=== PATIENT | female | born 1990 | race Caucasian/White ===

== ENCOUNTER 2018-04-05 02:47 | Observation (INO) ==
[2018-04-05] MEDS ORDERED: Sod Chloride 0.9% Inj 1,000 ML IV.SIG ONE ×3 (02:54→05:02)
[2018-04-05 03:30] LABS: Baso # (Auto) 0.1 th/mm3 (0.0-0.2); Baso % (Auto) 0.6 % (0.0-2.0); Eos % (Auto) 0.4 % (0.0-4.0); Hemoglobin 14.1 gm/dL (11.6-15.3); Lymph # (Auto) 3.6 th/mm3 (1.0-4.8); Lymph % (Auto) 38.4 % (9.0-44.0); Mean Corpuscular HGB Conc 33.5 % (32.0-36.0); Mean Corpuscular Hemoglobin 30.3 pg (27.0-34.0); Mean Corpuscular Volume 90.5 fL (80.0-100.0); Mean Platelet Volume 8.4 fL (7.0-11.0); Mono # (Auto) 0.9 th/mm3 (0.0-0.9); Mono % (Auto) 9.9 % (0.0-8.0); Neut # (Auto) 4.7 th/mm3 (1.8-7.7); Neut % (Auto) 50.7 % (16.0-70.0); Platelet Count 337 th/mm3 (150-450); Red Blood Count 4.64 mil/mm3 (4.00-5.30); Red Cell Distribution Width 14.5 % (11.6-17.2); White Blood Count 9.3 th/mm3 (4.0-11.0)
[2018-04-05] MEDS ORDERED: Adenosine Inj 6 MG/2 ML Syringe IV.PUSH ONE ×3 (03:33→03:40)
[2018-04-05 03:38] LABS: Bacteria,Urine Rare /hpf; Bilirubin,Urine Negative (Negative); Clarity,Urine Clear (Clear); Color,Urine Yellow (Yellw/Straw); Glucose,Urine (UA) Negative (Negative); Hyaline Casts,Urine 1 /lpf (0-3); Leukocyte Esterase,Urine Negative (Negative); Mucus,Urine Few /lpf (Occasional); Nitrite,Urine Negative (Negative); Specific Gravity,Urine 1.009 (1.002-1.035); Squamous Epithelial Cell,Urine 1 /hpf (0-5)
[2018-04-05 03:42] LABS: Amphetamine Screen,Urine Pos (Neg); Barbiturate Screen,Urine Neg (Neg); Cannabinoid Screen,Urine Neg (Neg); Cocaine Screen,Urine Neg (Neg); Opiate Screen,Urine Neg (Neg)
[2018-04-05 03:49] LABS: Alanine Aminotransferase 76 U/L (10-53); Albumin 4.3 g/dL (3.4-5.0); Anion Gap 15 meq/L (5-15); Aspartate Aminotransferase 39 U/L (15-37); Blood Urea Nitrogen 5 mg/dL (7-18); Calcium 8.1 mg/dL (8.5-10.1); Carbon Dioxide 17.6 meq/L (21.0-32.0); Chloride 111 meq/L (98-107); Glomerular Filtration Rate 75 mL/min (>89); Glucose,Random 122 mg/dL (74-106); Potassium 3.5 meq/L (3.5-5.1); Sodium 144 meq/L (136-145)
[2018-04-05 03:51] LABS: Alkaline Phosphatase 85 U/L (45-117); Total Protein 8.4 g/dL (6.4-8.2)
[2018-04-05 04:05] LABS: Alcohol 290 mg/dL (0-5)
--- NOTE | 2018-04-05 04:26 | ED ---
HPI General Chief Complaint: Altered Mental Status Stated Complaint: Unresponsive Time Seen by Provider: 04/05/18 02:52 Source: patient Mode of arrival: ambulatory Limitations: altered mental status History of Present Illness HPI narrative: Patient took an unknown pill. Altered mental status fall and she was brought to the ED. upon arrival history is limited due to altered mental status. MD complaint: altered mental status, decreased responsiveness and intoxication Onset (ago): hour(s) (1) Timing confirmed by: other (friend) Severity: moderate Consistency of symptoms: constant Context: alcohol abuse and drug abuse Associated symptoms: denies other symptoms Related Data Home Medications Medication Instructions Recorded Confirmed Unable to Obtain Home Meds 04/05/18 04/05/18 Allergies Allergy/AdvReac Type Severity Reaction Status Date / Time No Allergy Information Allergy Verified 04/05/18 02:59 Available Review of Systems ROS Unobtainable unobtainable due to mental status [facility] Medical History Medical History Medical history unknown (Acute) Surgical history unknown (Acute) Social History Social History Substance History: Unable to Obtain Smoking Status: Unknown if ever smoked How Often Do You Have a Drink Containing Alcohol: Unable to Obtain Recent Travel in [facility] within the Last 8 Weeks: No Recent Out of Country Travel within the Last 8 Weeks: No Immunization History Tetanus Immunization: Unable to Assess Exam Narrative Exam Narrative: GENERAL: Approximate 27-year-old female, GCS 9 SKIN: Focused skin assessment warm/dry. HEAD: Atraumatic. Normocephalic. EYES: Pupils equal and round. No scleral icterus. No injection or drainage. ENT: No nasal bleeding or discharge. Mucous membranes pink and moist. NECK: Trachea midline. No JVD. CARDIOVASCULAR: Tachycardia. Regular rhythm. RESPIRATORY: No accessory muscle use. Clear to auscultation. Breath sounds equal bilaterally. GASTROINTESTINAL: Abdomen soft, non-tender, nondistended. Hepatic and splenic margins not palpable. MUSCULOSKELETAL: No obvious deformities. No clubbing. No cyanosis. No edema. NEUROLOGICAL: Pupils are somewhat dilated. GCS is 9. There is an intact gag reflex. Alcohols on the breath. PSYCHIATRIC: Unable to assess Course Reevaluation(s) Reevaluation #1: Patient's heart rate increased to about 170. She received adenosine which was provided by the other physician in the emergency department. The heart rate decreased to about 150s. I examined the patient following return from a trauma alert and the heart rate was about 140. She had no chest pain or shortness of breath. The O2 sat is 100%. 3 L saline was added on. Ativan was added on. The patient was reassessed a few times over the next 2 hours or so. Heart rate remained at about 140. Another liter of saline was added on the another milligram of IV Ativan was added on. About 30 minutes 40 minutes after the Ativan was given a heart rate decreased to 130. Labetalol was also ordered in the meanwhile and rate decreased to 110s after. Case d/w Dr Richards at 0600. Initial Documented Vital Signs Temperature 97.7 F 04/05/18 02:53 Pulse Rate 122 H 04/05/18 02:53 Respiratory Rate 16 04/05/18 02:53 Blood Pressure 116/56 L 04/05/18 02:53 Pulse Oximetry 99 04/05/18 02:53 Last Documented Vital Signs Temperature 97.7 F 04/05/18 02:53 Pulse Rate 150 H 04/05/18 05:31 Respiratory Rate 16 04/05/18 05:31 Blood Pressure 151/82 H 04/05/18 05:31 Pulse Oximetry 99 04/05/18 05:55 Medical Decision Making POC Test Results POC Urine Results: Negative Lab Data Lab results reviewed: Yes I reviewed the patient's lab results. Result diagrams: 04/05/18 03:10 04/05/18 03:10 Lab Results 04/05/18 04/05/18 04/05/18 Range/Units 03:10 03:10 03:20 WBC 9.3 (4.0-11.0) th/mm3 RBC 4.64 (4.00-5.30) mil/mm3 Hgb 14.1 (11.6-15.3) gm/dL Hct 42.0 (35.0-46.0) % MCV 90.5 (80.0-100.0) fL MCH 30.3 (27.0-34.0) pg MCHC 33.5 (32.0-36.0) % RDW 14.5 (11.6-17.2) % Plt Count 337 (150-450) th/mm3 MPV 8.4 (7.0-11.0) fL Neut % (Auto) 50.7 (16.0-70.0) % Lymph % (Auto) 38.4 (9.0-44.0) % [place] % (Auto) 9.9 H (0.0-8.0) % Eos % (Auto) 0.4 (0.0-4.0) % Baso % (Auto) 0.6 (0.0-2.0) % Neut # (Auto) 4.7 (1.8-7.7) th/mm3 Lymph # (Auto) 3.6 (1.0-4.8) th/mm3 [place] # (Auto) 0.9 (0.0-0.9) th/mm3 Eos # (Auto) 0.0 (0.0-0.4) th/mm3 Baso # (Auto) 0.1 (0.0-0.2) th/mm3 WBC Differential . Differential Comment Auto diff final Sodium 144 (136-145) meq/L Potassium 3.5 (3.5-5.1) meq/L Chloride 111 H (98-107) meq/L Carbon Dioxide 17.6 L (21.0-32.0) meq/L Anion Gap 15 (5-15) meq/L BUN 5 L (7-18) mg/dL Creatinine 0.68 (0.50-1.00) mg/dL Estimated GFR 75 L (>89) mL/min Random Glucose 122 H (74-106) mg/dL Calcium 8.1 L (8.5-10.1) mg/dL Total Bilirubin 0.2 (0.2-1.0) mg/dL AST 39 H (15-37) U/L ALT 76 H (10-53) U/L Alkaline Phosphatase 85 (45-117) U/L Total Protein 8.4 H (6.4-8.2) g/dL Albumin 4.3 (3.4-5.0) g/dL Urine Color (Yellw/Straw) Urine Clarity (Clear) Urine pH (5.0-8.5) Ur Specific [place] (1.002-1.035) Urine Protein (Neg-Trace) mg/dL Urine Glucose (UA) (Negative) mg/dL Urine Ketones (Negative) mg/dL Urine Occult Blood (Negative) Urine Nitrate (Negative) Urine Bilirubin (Negative) Urine Urobilinogen (Less than 2) mg/dL Ur Leukocyte Esterase (Negative) Urine RBC (0-3) /hpf Urine WBC (0-5) /hpf Ur Squamous Epith Cells (0-5) /hpf Urine Bacteria (None) /hpf Hyaline Casts (0-3) /lpf Urine Mucus (Occasional) /lpf Urine Opiates Screen Neg (Neg) Acetaminophen Less than 2.0 L (10.0-30.0) mcg/mL Ur Barbiturates Screen Neg (Neg) Ur Amphetamines Screen Pos H (Neg) U Benzodiazepines Scrn Neg (Neg) Urine Cocaine Screen Neg (Neg) U Cannabinoids Screen Neg (Neg) Serum Alcohol 290 H (0-5) mg/dL 04/05/18 Range/Units 03:20 WBC (4.0-11.0) th/mm3 RBC (4.00-5.30) mil/mm3 Hgb (11.6-15.3) gm/dL Hct (35.0-46.0) % MCV (80.0-100.0) fL MCH (27.0-34.0) pg MCHC (32.0-36.0) % RDW (11.6-17.2) % Plt Count (150-450) th/mm3 MPV (7.0-11.0) fL Neut % (Auto) (16.0-70.0) % Lymph % (Auto) (9.0-44.0) % [place] % (Auto) (0.0-8.0) % Eos % (Auto) (0.0-4.0) % Baso % (Auto) (0.0-2.0) % Neut # (Auto) (1.8-7.7) th/mm3 Lymph # (Auto) (1.0-4.8) th/mm3 [place] # (Auto) (0.0-0.9) th/mm3 Eos # (Auto) (0.0-0.4) th/mm3 Baso # (Auto) (0.0-0.2) th/mm3 WBC Differential Differential Comment Sodium (136-145) meq/L Potassium (3.5-5.1) meq/L Chloride (98-107) meq/L Carbon Dioxide (21.0-32.0) meq/L Anion Gap (5-15) meq/L BUN (7-18) mg/dL Creatinine (0.50-1.00) mg/dL Estimated GFR (>89) mL/min Random Glucose (74-106) mg/dL Calcium (8.5-10.1) mg/dL Total Bilirubin (0.2-1.0) mg/dL AST (15-37) U/L ALT (10-53) U/L Alkaline Phosphatase (45-117) U/L Total Protein (6.4-8.2) g/dL Albumin (3.4-5.0) g/dL Urine Color Yellow (Yellw/Straw) Urine Clarity Clear (Clear) Urine pH 5.0 (5.0-8.5) Ur Specific [place] 1.009 (1.002-1.035) Urine Protein Negative (Neg-Trace) mg/dL Urine Glucose (UA) Negative (Negative) mg/dL Urine Ketones Negative (Negative) mg/dL Urine Occult Blood Small H (Negative) Urine Nitrate Negative (Negative) Urine Bilirubin Negative (Negative) Urine Urobilinogen Less than 2 (Less than 2) mg/dL Ur Leukocyte Esterase Negative (Negative) Urine RBC 1 (0-3) /hpf Urine WBC 1 (0-5) /hpf Ur Squamous Epith Cells 1 (0-5) /hpf Urine Bacteria Rare H (None) /hpf Hyaline Casts 1 (0-3) /lpf Urine Mucus Few H (Occasional) /lpf Urine Opiates Screen (Neg) Acetaminophen (10.0-30.0) mcg/mL Ur Barbiturates Screen (Neg) Ur Amphetamines Screen (Neg) U Benzodiazepines Scrn (Neg) Urine Cocaine Screen (Neg) U Cannabinoids Screen (Neg) Serum Alcohol (0-5) mg/dL Alcohol is 290 Tox positive for amphetamine Imaging Data Radiologist's impression: ITS Impressions Chest X-Ray 04/05/18 02:52 CONCLUSION: The lungs are clear. Head CT 04/05/18 02:52 CONCLUSION: 1. Negative noncontrast CT brain. ECG Data EKG Prior to Arrival: No Attestation: I personally reviewed and interpreted this ECG as follows: Prior ECG tracings: not available for review Interpretation: EKG: SVT, rate 170s, normal axis Discharge Plan Discharge Disposition Patient Disposition: 30 Still Patient Physicians Team ED Provider: Michael Hurley Rxs /Orders / Referrals /Forms Prescriptions: No Action Unable to Obtain Home Meds RF: 0 Discharge Interventions Interventions: Vital Signs Last Done: 04/05/18 05:31 Status ED Status: With Doctor
[2018-04-05] MEDS ORDERED: Labetalol HCl Inj 100 MG/20 ML Vial IV.PUSH ONE (05:23)
--- NOTE | 2018-04-05 05:57 | XR ---
EXAM DATE: 04/05/2018 3:57 AM EDT AGE/SEX: 89 years / Female INDICATIONS: Chest discomfort, altered mental status, possible overdose CLINICAL DATA: This is the patient's initial encounter. Patient reports that signs and symptoms have been present for 1 day and indicates a pain score of Nonresponsive. MEDICAL/SURGICAL HISTORY: None. None. COMPARISON: No prior exams available for comparison. FINDINGS: Mild patient rotation towards the left. A single AP view of the chest demonstrates the lungs to be sy mmetrically aerated without evidence of mass, infiltrate or effusion. The cardiomediastinal contours are unremarkable. Osseous structures are intact. CONCLUSION: The lungs are clear. Electronically signed by: Ramirez Greenberg MD 04/05/2018 5:56 AM EDT
[2018-04-05] MEDS ORDERED: Bisacodyl 10 MG Supp RECTAL PRN (05:58)
--- NOTE | 2018-04-05 06:09 | ED ---
HPI General Chief Complaint: Altered Mental Status Stated Complaint: Unresponsive Time Seen by Provider: 04/05/18 02:52 Source: patient Mode of arrival: ambulatory Limitations: altered mental status Related Data Home Medications Medication Instructions Recorded Confirmed Unable to Obtain Home Meds 04/05/18 04/05/18 Allergies Allergy/AdvReac Type Severity Reaction Status Date / Time No Allergy Information Allergy Verified 04/05/18 02:59 Available [facility] Medical History Medical History Medical history unknown (Acute) Surgical history unknown (Acute) Social History Social History Substance History: Unable to Obtain Smoking Status: Unknown if ever smoked How Often Do You Have a Drink Containing Alcohol: Unable to Obtain Recent Travel in [facility] within the Last 8 Weeks: No Recent Out of Country Travel within the Last 8 Weeks: No Immunization History Tetanus Immunization: Unable to Assess Course Initial Documented Vital Signs Temperature 97.7 F 04/05/18 02:53 Pulse Rate 122 H 04/05/18 02:53 Respiratory Rate 16 04/05/18 02:53 Blood Pressure 116/56 L 04/05/18 02:53 Pulse Oximetry 99 04/05/18 02:53 Last Documented Vital Signs Temperature 97.7 F 04/05/18 02:53 Pulse Rate 150 H 04/05/18 05:31 Respiratory Rate 16 04/05/18 05:31 Blood Pressure 151/82 H 04/05/18 05:31 Pulse Oximetry 99 04/05/18 05:55 Medical Decision Making POC Test Results POC Urine Results: Negative Lab Data Result diagrams: 04/05/18 03:10 04/05/18 03:10 Lab Results 04/05/18 04/05/18 04/05/18 Range/Units 03:10 03:10 03:20 WBC 9.3 (4.0-11.0) th/mm3 RBC 4.64 (4.00-5.30) mil/mm3 Hgb 14.1 (11.6-15.3) gm/dL Hct 42.0 (35.0-46.0) % MCV 90.5 (80.0-100.0) fL MCH 30.3 (27.0-34.0) pg MCHC 33.5 (32.0-36.0) % RDW 14.5 (11.6-17.2) % Plt Count 337 (150-450) th/mm3 MPV 8.4 (7.0-11.0) fL Neut % (Auto) 50.7 (16.0-70.0) % Lymph % (Auto) 38.4 (9.0-44.0) % [place] % (Auto) 9.9 H (0.0-8.0) % Eos % (Auto) 0.4 (0.0-4.0) % Baso % (Auto) 0.6 (0.0-2.0) % Neut # (Auto) 4.7 (1.8-7.7) th/mm3 Lymph # (Auto) 3.6 (1.0-4.8) th/mm3 [place] # (Auto) 0.9 (0.0-0.9) th/mm3 Eos # (Auto) 0.0 (0.0-0.4) th/mm3 Baso # (Auto) 0.1 (0.0-0.2) th/mm3 WBC Differential . Differential Comment Auto diff final Sodium 144 (136-145) meq/L Potassium 3.5 (3.5-5.1) meq/L Chloride 111 H (98-107) meq/L Carbon Dioxide 17.6 L (21.0-32.0) meq/L Anion Gap 15 (5-15) meq/L BUN 5 L (7-18) mg/dL Creatinine 0.68 (0.50-1.00) mg/dL Estimated GFR 75 L (>89) mL/min Random Glucose 122 H (74-106) mg/dL Calcium 8.1 L (8.5-10.1) mg/dL Total Bilirubin 0.2 (0.2-1.0) mg/dL AST 39 H (15-37) U/L ALT 76 H (10-53) U/L Alkaline Phosphatase 85 (45-117) U/L Total Protein 8.4 H (6.4-8.2) g/dL Albumin 4.3 (3.4-5.0) g/dL Urine Color (Yellw/Straw) Urine Clarity (Clear) Urine pH (5.0-8.5) Ur Specific [place] (1.002-1.035) Urine Protein (Neg-Trace) mg/dL Urine Glucose (UA) (Negative) mg/dL Urine Ketones (Negative) mg/dL Urine Occult Blood (Negative) Urine Nitrate (Negative) Urine Bilirubin (Negative) Urine Urobilinogen (Less than 2) mg/dL Ur Leukocyte Esterase (Negative) Urine RBC (0-3) /hpf Urine WBC (0-5) /hpf Ur Squamous Epith Cells (0-5) /hpf Urine Bacteria (None) /hpf Hyaline Casts (0-3) /lpf Urine Mucus (Occasional) /lpf Urine Opiates Screen Neg (Neg) Acetaminophen Less than 2.0 L (10.0-30.0) mcg/mL Ur Barbiturates Screen Neg (Neg) Ur Amphetamines Screen Pos H (Neg) U Benzodiazepines Scrn Neg (Neg) Urine Cocaine Screen Neg (Neg) U Cannabinoids Screen Neg (Neg) Serum Alcohol 290 H (0-5) mg/dL 04/05/18 Range/Units 03:20 WBC (4.0-11.0) th/mm3 RBC (4.00-5.30) mil/mm3 Hgb (11.6-15.3) gm/dL Hct (35.0-46.0) % MCV (80.0-100.0) fL MCH (27.0-34.0) pg MCHC (32.0-36.0) % RDW (11.6-17.2) % Plt Count (150-450) th/mm3 MPV (7.0-11.0) fL Neut % (Auto) (16.0-70.0) % Lymph % (Auto) (9.0-44.0) % [place] % (Auto) (0.0-8.0) % Eos % (Auto) (0.0-4.0) % Baso % (Auto) (0.0-2.0) % Neut # (Auto) (1.8-7.7) th/mm3 Lymph # (Auto) (1.0-4.8) th/mm3 [place] # (Auto) (0.0-0.9) th/mm3 Eos # (Auto) (0.0-0.4) th/mm3 Baso # (Auto) (0.0-0.2) th/mm3 WBC Differential Differential Comment Sodium (136-145) meq/L Potassium (3.5-5.1) meq/L Chloride (98-107) meq/L Carbon Dioxide (21.0-32.0) meq/L Anion Gap (5-15) meq/L BUN (7-18) mg/dL Creatinine (0.50-1.00) mg/dL Estimated GFR (>89) mL/min Random Glucose (74-106) mg/dL Calcium (8.5-10.1) mg/dL Total Bilirubin (0.2-1.0) mg/dL AST (15-37) U/L ALT (10-53) U/L Alkaline Phosphatase (45-117) U/L Total Protein (6.4-8.2) g/dL Albumin (3.4-5.0) g/dL Urine Color Yellow (Yellw/Straw) Urine Clarity Clear (Clear) Urine pH 5.0 (5.0-8.5) Ur Specific [place] 1.009 (1.002-1.035) Urine Protein Negative (Neg-Trace) mg/dL Urine Glucose (UA) Negative (Negative) mg/dL Urine Ketones Negative (Negative) mg/dL Urine Occult Blood Small H (Negative) Urine Nitrate Negative (Negative) Urine Bilirubin Negative (Negative) Urine Urobilinogen Less than 2 (Less than 2) mg/dL Ur Leukocyte Esterase Negative (Negative) Urine RBC 1 (0-3) /hpf Urine WBC 1 (0-5) /hpf Ur Squamous Epith Cells 1 (0-5) /hpf Urine Bacteria Rare H (None) /hpf Hyaline Casts 1 (0-3) /lpf Urine Mucus Few H (Occasional) /lpf Urine Opiates Screen (Neg) Acetaminophen (10.0-30.0) mcg/mL Ur Barbiturates Screen (Neg) Ur Amphetamines Screen (Neg) U Benzodiazepines Scrn (Neg) Urine Cocaine Screen (Neg) U Cannabinoids Screen (Neg) Serum Alcohol (0-5) mg/dL Imaging Data Radiologist's impression: ITS Impressions Chest X-Ray 04/05/18 02:52 CONCLUSION: The lungs are clear. Head CT 04/05/18 02:52 CONCLUSION: 1. Negative noncontrast CT brain. Discharge Plan Discharge Disposition Patient Disposition: 30 Still Patient Physicians Team ED Provider: Michael Hurley Rxs /Orders / Referrals /Forms Prescriptions: No Action Unable to Obtain Home Meds RF: 0 Discharge Interventions Interventions: Vital Signs Last Done: 04/05/18 05:31 Status ED Status: With Doctor
--- NOTE | 2018-04-05 06:16 | ED ---
HPI General Chief Complaint: Altered Mental Status Stated Complaint: Unresponsive Time Seen by Provider: 04/05/18 02:52 Source: patient Mode of arrival: ambulatory Limitations: altered mental status History of Present Illness HPI narrative: Patient is polysubstance intoxicated MD complaint: intoxication Onset (ago): hour(s) Severity: moderate Consistency of symptoms: getting worse Context: alcohol abuse and drug abuse Associated symptoms: denies other symptoms Related Data Home Medications Medication Instructions Recorded Confirmed Unable to Obtain Home Meds 04/05/18 04/05/18 Allergies Allergy/AdvReac Type Severity Reaction Status Date / Time No Allergy Information Allergy Verified 04/05/18 02:59 Available Review of Systems ROS Unobtainable unobtainable due to mental status ON LICENSE OF [facility] Medical History Medical History Medical history unknown (Acute) Surgical history unknown (Acute) Social History Social History Substance History: Unable to Obtain Smoking Status: Unknown if ever smoked How Often Do You Have a Drink Containing Alcohol: Unable to Obtain Recent Travel in [facility] within the Last 8 Weeks: No Recent Out of Country Travel within the Last 8 Weeks: No Immunization History Tetanus Immunization: Unable to Assess Exam Narrative Exam Narrative: GENERAL: 27-year-old fema GCS 9 SKIN: Focused skin assessment warm/dry. HEAD: Atraumatic. Normocephalic. EYES: Pupils equal and round. No scleral icterus. No injection or drainage. ENT: No nasal bleeding or discharge. Mucous membranes pink and moist. NECK: Trachea midline. No JVD. CARDIOVASCULAR: Regular rate and rhythm. No murmur appreciated. RESPIRATORY: No accessory muscle use. Clear to auscultation. Breath sounds equal bilaterally. GASTROINTESTINAL: Abdomen soft, non-tender, nondistended. Hepatic and splenic margins not palpable. MUSCULOSKELETAL: No obvious deformities. No clubbing. No cyanosis. No edema. NEUROLOGICAL: A GCS 9 PSYCHIATRIC: Appropriate mood and affect; insight and judgment normal. Course Reevaluation(s) Reevaluation #1: Return from a trauma alert and patient's heart rate was 150. Evidently was as high as 170s. The patient received adenosine. 3 L of saline started. IV Ativan started. The patient was reassessed multiple times over the subsequent 2 hours and the heart remained about 140. Third liter of normal saline was ordered and a second IV 1 mg dose of Ativan was ordered. The heart rate remained about 11/01/1937. Labetalol given and the heart rate dropped about 110. The patient will be admitted for ongoing cardiac monitoring. GCS is improved to 15 here however the patient is undressed herself and removed her IV twice. Soft restraints added. No suicidal or homicidal ideation. Case discussed with Dr. Richards. Initial Documented Vital Signs Temperature 97.7 F 04/05/18 02:53 Pulse Rate 122 H 04/05/18 02:53 Respiratory Rate 16 04/05/18 02:53 Blood Pressure 116/56 L 04/05/18 02:53 Pulse Oximetry 99 04/05/18 02:53 Last Documented Vital Signs Temperature 97.7 F 04/05/18 02:53 Pulse Rate 112 H 04/05/18 06:00 Respiratory Rate 20 04/05/18 06:00 Blood Pressure 148/76 H 04/05/18 06:00 Pulse Oximetry 100 04/05/18 06:00 NIH Stroke Scale NIH Stroke Scale Level of Consciousness: 0-Alert Orientation Questions: 0-Answers both correct Responds to Commands: 0-Both tasks correct Gaze Eye Movement: 0-Horizontal movement WNL Visual [place]: 0-No visual field defect Facial Movement: 0-Normal Motor Functions Arm LEFT: 0-No drift Motor Functions Arm RIGHT: 0-No drift Motor Functions Leg LEFT: 0-No drift Motor Functions Leg RIGHT: 0-No drift Limb Ataxia: 0-No ataxia Sensory Loss: 0-No sensory loss Best Language: 0-Normal Articulation: 0-Normal Extinction or Inattention Sensory: 0-Absent Total: 0 Medical Decision Making POC Test Results POC Urine Results: Negative Lab Data Lab results reviewed: Yes I reviewed the patient's lab results. Lab results narrative: Patient is intoxicated with alcohol and amphetamines. Result diagrams: 04/05/18 03:10 04/05/18 03:10 Lab Results 04/05/18 04/05/18 04/05/18 Range/Units 03:10 03:10 03:20 WBC 9.3 (4.0-11.0) th/mm3 RBC 4.64 (4.00-5.30) mil/mm3 Hgb 14.1 (11.6-15.3) gm/dL Hct 42.0 (35.0-46.0) % MCV 90.5 (80.0-100.0) fL MCH 30.3 (27.0-34.0) pg MCHC 33.5 (32.0-36.0) % RDW 14.5 (11.6-17.2) % Plt Count 337 (150-450) th/mm3 MPV 8.4 (7.0-11.0) fL Neut % (Auto) 50.7 (16.0-70.0) % Lymph % (Auto) 38.4 (9.0-44.0) % [place] % (Auto) 9.9 H (0.0-8.0) % Eos % (Auto) 0.4 (0.0-4.0) % Baso % (Auto) 0.6 (0.0-2.0) % Neut # (Auto) 4.7 (1.8-7.7) th/mm3 Lymph # (Auto) 3.6 (1.0-4.8) th/mm3 [place] # (Auto) 0.9 (0.0-0.9) th/mm3 Eos # (Auto) 0.0 (0.0-0.4) th/mm3 Baso # (Auto) 0.1 (0.0-0.2) th/mm3 WBC Differential . Differential Comment Auto diff final Sodium 144 (136-145) meq/L Potassium 3.5 (3.5-5.1) meq/L Chloride 111 H (98-107) meq/L Carbon Dioxide 17.6 L (21.0-32.0) meq/L Anion Gap 15 (5-15) meq/L BUN 5 L (7-18) mg/dL Creatinine 0.68 (0.50-1.00) mg/dL Estimated GFR 75 L (>89) mL/min Random Glucose 122 H (74-106) mg/dL Calcium 8.1 L (8.5-10.1) mg/dL Total Bilirubin 0.2 (0.2-1.0) mg/dL AST 39 H (15-37) U/L ALT 76 H (10-53) U/L Alkaline Phosphatase 85 (45-117) U/L Total Protein 8.4 H (6.4-8.2) g/dL Albumin 4.3 (3.4-5.0) g/dL Urine Color (Yellw/Straw) Urine Clarity (Clear) Urine pH (5.0-8.5) Ur Specific [place] (1.002-1.035) Urine Protein (Neg-Trace) mg/dL Urine Glucose (UA) (Negative) mg/dL Urine Ketones (Negative) mg/dL Urine Occult Blood (Negative) Urine Nitrate (Negative) Urine Bilirubin (Negative) Urine Urobilinogen (Less than 2) mg/dL Ur Leukocyte Esterase (Negative) Urine RBC (0-3) /hpf Urine WBC (0-5) /hpf Ur Squamous Epith Cells (0-5) /hpf Urine Bacteria (None) /hpf Hyaline Casts (0-3) /lpf Urine Mucus (Occasional) /lpf Urine Opiates Screen Neg (Neg) Acetaminophen Less than 2.0 L (10.0-30.0) mcg/mL Ur Barbiturates Screen Neg (Neg) Ur Amphetamines Screen Pos H (Neg) U Benzodiazepines Scrn Neg (Neg) Urine Cocaine Screen Neg (Neg) U Cannabinoids Screen Neg (Neg) Serum Alcohol 290 H (0-5) mg/dL 04/05/18 Range/Units 03:20 WBC (4.0-11.0) th/mm3 RBC (4.00-5.30) mil/mm3 Hgb (11.6-15.3) gm/dL Hct (35.0-46.0) % MCV (80.0-100.0) fL MCH (27.0-34.0) pg MCHC (32.0-36.0) % RDW (11.6-17.2) % Plt Count (150-450) th/mm3 MPV (7.0-11.0) fL Neut % (Auto) (16.0-70.0) % Lymph % (Auto) (9.0-44.0) % [place] % (Auto) (0.0-8.0) % Eos % (Auto) (0.0-4.0) % Baso % (Auto) (0.0-2.0) % Neut # (Auto) (1.8-7.7) th/mm3 Lymph # (Auto) (1.0-4.8) th/mm3 [place] # (Auto) (0.0-0.9) th/mm3 Eos # (Auto) (0.0-0.4) th/mm3 Baso # (Auto) (0.0-0.2) th/mm3 WBC Differential Differential Comment Sodium (136-145) meq/L Potassium (3.5-5.1) meq/L Chloride (98-107) meq/L Carbon Dioxide (21.0-32.0) meq/L Anion Gap (5-15) meq/L BUN (7-18) mg/dL Creatinine (0.50-1.00) mg/dL Estimated GFR (>89) mL/min Random Glucose (74-106) mg/dL Calcium (8.5-10.1) mg/dL Total Bilirubin (0.2-1.0) mg/dL AST (15-37) U/L ALT (10-53) U/L Alkaline Phosphatase (45-117) U/L Total Protein (6.4-8.2) g/dL Albumin (3.4-5.0) g/dL Urine Color Yellow (Yellw/Straw) Urine Clarity Clear (Clear) Urine pH 5.0 (5.0-8.5) Ur Specific [place] 1.009 (1.002-1.035) Urine Protein Negative (Neg-Trace) mg/dL Urine Glucose (UA) Negative (Negative) mg/dL Urine Ketones Negative (Negative) mg/dL Urine Occult Blood Small H (Negative) Urine Nitrate Negative (Negative) Urine Bilirubin Negative (Negative) Urine Urobilinogen Less than 2 (Less than 2) mg/dL Ur Leukocyte Esterase Negative (Negative) Urine RBC 1 (0-3) /hpf Urine WBC 1 (0-5) /hpf Ur Squamous Epith Cells 1 (0-5) /hpf Urine Bacteria Rare H (None) /hpf Hyaline Casts 1 (0-3) /lpf Urine Mucus Few H (Occasional) /lpf Urine Opiates Screen (Neg) Acetaminophen (10.0-30.0) mcg/mL Ur Barbiturates Screen (Neg) Ur Amphetamines Screen (Neg) U Benzodiazepines Scrn (Neg) Urine Cocaine Screen (Neg) U Cannabinoids Screen (Neg) Serum Alcohol (0-5) mg/dL Imaging Data Radiologist's impression: ITS Impressions Chest X-Ray 04/05/18 02:52 CONCLUSION: The lungs are clear. Head CT 04/05/18 02:52 CONCLUSION: 1. Negative noncontrast CT brain. Discharge Plan Discharge Disposition Patient Disposition: 30 Still Patient Physicians Team ED Provider: Michael Hurley Rxs /Orders / Referrals /Forms Prescriptions: No Action Unable to Obtain Home Meds RF: 0 Status ED Status: With Doctor
[2018-04-05] MEDS: Sod Chloride 0.9% Inj 1,000 ML IV.CONT SCH ×3 (07:47→22:51)
[2018-04-05] MEDS ORDERED: LORazepam 1 MG Tablet PO PRN (09:15)
[2018-04-05] MEDS ORDERED: Haloperidol Inj 5 MG/ML Ampul IV.PUSH PRN ×2 (09:15→09:58)
[2018-04-05 10:11] LABS: Magnesium 2.2 mg/dL (1.5-2.5); Phosphorus 2.7 mg/dL (2.5-4.9)
[2018-04-05] MEDS: Folic Acid 1 MG Tablet PO SCH (10:49)
[2018-04-05] MEDS: Enoxaparin Inj 40 MG/0.4 ML Syringe SQ SCH (10:49)
[2018-04-05] MEDS: Multivitamin/Minerals Therapeutic Tablet PO SCH (10:49)
--- NOTE | 2018-04-05 12:15 | P.HPIM ---
History of Present Illness Service: [facility] Primary Care Physician: UNKNOWN Chief Complaint: Altered mental status History of Present Illness: Patient is a female who was brought in through the emergency department with altered mental status. Patient was polysubstance intoxicated. Was not able to really give much history when she initially presented has history of what looks like drug abuse and alcohol abuse was found to be tachycardic and will be given fluids and will be monitored today we will get a.m. labs - Diagnosis (1) Altered mental status (2) Tachycardia (3) Amphetamine abuse - Inpatient Certification If this patient has been admitted as an Inpatient: I certify that the inpatient services were ordered in accordance with Medicare regulations governing the order. This includes certification that hospital inpatient services are reasonable and necessary and in the case of services not specified as inpatient-only under 42 CFR 419.22(n), that they are appropriately provided as inpatient services in accordance to with the 2-midnight benchmark under 43 CFR 412.3(e) Estimated Total Length of Stay (Days): 2 Plans for Post Hospital Care: Home Review of Systems All other systems reviewed negative except as stated in HPI Constitutional: Reports fatigue, Denies anorexia, Denies malaise Eyes: Denies blind spots, Denies discharge, Denies pain Ears, Nose, Mouth, and Throat: Denies abnormal hearing, Denies dental pain, Denies ear pain, Denies lip swelling, Denies nasal discharge, Denies nose pain, Denies ringing in the ears, Denies throat swelling Cardiovascular: Reports fast heart rate, Denies chest pain, Denies excessive sweating, Denies generalized swelling, Denies leg sores, Denies rapid, pounding , or irregular heartbeat, Denies shortness of breath with activity, Denies shortness of breath causing sudden awakening Respiratory: Denies change in phlegm color, Denies excessive phlegm production, Denies shortness of breath, Denies wheezing Gastrointestinal: Denies abdominal pain, Denies bright, red blood in stools, Denies constant urge to pass stool, Denies constipation, Denies feeling full early, Denies pain with swallowing Genitourinary: Denies abnormal periods, Denies bleeding between periods, Denies difficulty urinating, Denies genital itching Musculoskeletal: Denies abnormal walking, Denies deformity, Denies loss of height, Denies radiating pain into limb Skin/Breast: Denies bleeding lesions, Denies breast pain, Denies change in skin color, Denies hair loss, Denies nipple discharge Neurologic: Denies abnormal hearing, Denies abnormal walking, Denies dizziness, Denies localized weakness, Denies other visual disturbances Psychiatric: Reports anxiety, Denies abnormal sleep pattern, Denies hearing things others do not hear, Denies lack of enjoyment, Denies seeing things others do not see, Denies tactile hallucinations Endocrine: Denies cold intolerance, Denies increased hunger, Denies rapid, pounding, or irregular heartbeat Hematologic/Lymphatic: Denies easy bleeding, Denies easy bruising Allergic/Immunologic: Denies GI upset with certain foods, Denies seasonal runny nose, Denies throat swelling PMFSH - History History Provided By: Patient - Medical / Surgical Hx Neg / Unobtainable Medical Problems Denied: Unable to Obtain Surgical History: Unable to Obtain - Medical History Medical History: Medical History (Last Reviewed 04/05/18 @ 11:09 by Julio C Cordero) Medical history unknown Surgical history unknown - Tobacco History Smoking Status: Unknown if ever smoked - Alcohol History How Often Do You Have a Drink Containing Alcohol: Unable to Obtain - Substance Use History Substance History: Unable to Obtain - Substance Use Type Amphetamines Status: Active - Travel History Recent Travel in the [place] Within the Last 8 Weeks: No Recent Travel Out of the Country Within the Last 8 Weeks: No - Immunization History Tetanus Immunization: Unable to Assess Medications and Allergies Active Medications: Active Medications Al Hydroxide/Mg Hydroxide (Milk Of Magnpramod Liq) 30 ml PO Q12H PRN PRN Reason: Mild Constipation Bisacodyl (Dulcolax Supp) 10 mg RECTAL DAILY PRN PRN Reason: SEVERE CONSITIPATION Clonidine HCl (Catapres) 0.1 mg PO Q6H PRN PRN Reason: For SBP >/= 180, DBP >/= 100 Enoxaparin Sodium (Lovenox Inj) 40 mg SQ Q24H [facility] Last Admin: 04/05/18 10:49 Dose: 40 mg Flumazenil (Romazecon Inj) 0.2 mg IV.PUSH Q1M PRN PRN Reason: OVERSEDATION Folic Acid (Folic Acid) 1 mg PO DAILY [facility] Stop: 04/10/18 09:29 Last Admin: 04/05/18 10:49 Dose: 1 mg Haloperidol Lactate (Haldol Inj) 1 mg IV.PUSH Q15M PRN PRN Reason: for severe agitation Sodium Chloride (Ns Inj) 1,000 mls @ 100 mls/hr IV.CONT .Q10H [facility] Last Admin: 04/05/18 07:47 Dose: 100 mls/hr Lactulose (Lactulose Liq) 30 ml PO DAILY PRN PRN Reason: SEVERE CONSITIPATION Lorazepam (Ativan) 1 mg PO Q4H PRN PRN Reason: for CIWA 8-10 Lorazepam (Ativan Inj) 2 mg IV.PUSH Q2H PRN PRN Reason: for CIWA 11-14 Lorazepam (Ativan Inj) 2 mg IV.PUSH Q1H PRN PRN Reason: for CIWA 15-20 Lorazepam (Ativan Inj) 2 mg IV.PUSH Q15M PRN PRN Reason: for CIWA > 20 Lorazepam (Ativan Inj) 1 mg IV.PUSH Q4H PRN PRN Reason: for CIWA 8-10 Lorazepam (Ativan) 2 mg PO Q2H PRN PRN Reason: for CIWA 11-14 Multivitamins/Minerals (Theragran-M) 1 tab PO DAILY [facility] Stop: 04/10/18 09:29 Last Admin: 04/05/18 10:49 Dose: 1 tab Ondansetron HCl (Zofran Odt) 4 mg PO Q6H PRN PRN Reason: NAUSEA OR VOMITING Pantoprazole Sodium (Protonix) 40 mg PO DAILY [facility] Last Admin: 04/05/18 10:49 Dose: 40 mg Sennosides (Senokot) 17.2 mg PO Q12H PRN PRN Reason: Moderate Constipation Thiamine HCl (Vitamin B1) 100 mg PO DAILY [facility] Last Admin: 04/05/18 10:49 Dose: 100 mg Allergies Allergy/AdvReac Type Severity Reaction Status Date / Time No Allergy Information Allergy Verified 04/05/18 02:59 Available Home Medications Medication Instructions Recorded Confirmed Type Unable to Obtain Home Meds 04/05/18 04/05/18 History Exam Vital signs: Vital Signs 04/05/18 02:53 04/05/18 03:27 04/05/18 03:34 Temperature 97.7 F Pulse Rate 122 H 170 H 168 H Respiratory Rate 16 22 Blood Pressure 116/56 L 183/83 H Pulse Oximetry 99 99 04/05/18 05:00 04/05/18 05:30 04/05/18 05:31 Temperature Pulse Rate 146 H 154 H 150 H Respiratory Rate 18 20 16 Blood Pressure 136/75 151/82 H 151/82 H Pulse Oximetry 99 100 100 04/05/18 05:55 04/05/18 06:00 04/05/18 06:35 Temperature Pulse Rate 112 H 113 H Respiratory Rate 20 16 Blood Pressure 148/76 H 115/65 Pulse Oximetry 99 100 99 04/05/18 08:08 04/05/18 10:50 Temperature Pulse Rate 112 H 103 H Respiratory Rate 17 19 Blood Pressure 134/85 127/84 Pulse Oximetry Intake & Output 04/04/18 04/05/18 04/05/18 18:59 06:59 18:59 Weight 68.039 kg Other: # Voids 1 # Incontinent Voids 1 Narrative: GENERAL: Currently now more awake and alert oriented 3 talkative and more cooperative SKIN: Warm and dry. Few tattoos HEAD: Atraumatic. Normocephalic. EYES: Pupils equal and round. No scleral icterus. No injection or drainage. Extraocular muscles intact ENT: No nasal bleeding or discharge. Mucous membranes pink and moist. Tongue is midline NECK: Trachea midline. No JVD. Supple CARDIOVASCULAR: Regular rate and rhythm. S1-S2 no S3 or S4 tachycardic RESPIRATORY: No accessory muscle use. Clear to auscultation. Breath sounds equal bilaterally. GASTROINTESTINAL: Abdomen soft, non-tender, nondistended. Hepatic and splenic margins not palpable. MUSCULOSKELETAL: Extremities without clubbing, cyanosis, or edema. No obvious deformities. NEUROLOGICAL: Awake and alert. No obvious cranial nerve deficits. Motor grossly within normal limits. Five out of 5 muscle strength in the arms and legs. Normal speech. PSYCHIATRIC: INAppropriate mood and affect; insight and judgment ABnormal. Results - Labs CBC & Chem 7: 04/05/18 03:10 04/05/18 03:10 Labs: Short CBC 04/05/18 Range/Units 03:10 WBC 9.3 (4.0-11.0) th/mm3 Hgb 14.1 (11.6-15.3) gm/dL Hct 42.0 (35.0-46.0) % Plt Count 337 (150-450) th/mm3 [facility] 04/05/18 03:10 Sodium 144 Potassium 3.5 Chloride 111 H Carbon Dioxide 17.6 L BUN 5 L Creatinine 0.68 Calcium 8.1 L Liver Function 04/05/18 Range/Units 03:10 Total Bilirubin 0.2 (0.2-1.0) mg/dL AST 39 H (15-37) U/L ALT 76 H (10-53) U/L Alkaline Phosphatase 85 (45-117) U/L Albumin 4.3 (3.4-5.0) g/dL Urine 04/05/18 Range/Units 03:20 Urine Color Yellow (Yellw/Straw) Urine Clarity Clear (Clear) Urine pH 5.0 (5.0-8.5) Ur Specific [place] 1.009 (1.002-1.035) Urine Protein Negative (Neg-Trace) mg/dL Urine Glucose (UA) Negative (Negative) mg/dL Laboratory Tests 04/05/18 04/05/18 04/05/18 03:10 03:10 03:10 WBC 9.3 RBC 4.64 Hgb 14.1 Hct 42.0 MCV 90.5 MCH 30.3 MCHC 33.5 RDW 14.5 Plt Count 337 MPV 8.4 Neut % (Auto) 50.7 Lymph % (Auto) 38.4 [place] % (Auto) 9.9 H Eos % (Auto) 0.4 Baso % (Auto) 0.6 Neut # (Auto) 4.7 Lymph # (Auto) 3.6 [place] # (Auto) 0.9 Eos # (Auto) 0.0 Baso # (Auto) 0.1 WBC Differential . Differential Comment Auto diff final Sodium 144 Potassium 3.5 Chloride 111 H Carbon Dioxide 17.6 L Anion Gap 15 BUN 5 L Creatinine 0.68 Estimated GFR 75 L Random Glucose 122 H Calcium 8.1 L Phosphorus 2.7 Magnesium 2.2 Total Bilirubin 0.2 AST 39 H ALT 76 H Alkaline Phosphatase 85 Total Protein 8.4 H Albumin 4.3 Urine Color Urine Clarity Urine pH Ur Specific [place] Urine Protein Urine Glucose (UA) Urine Ketones Urine Occult Blood Urine Nitrate Urine Bilirubin Urine Urobilinogen Ur Leukocyte Esterase Urine RBC Urine WBC Ur Squamous Epith Cells Urine Bacteria Hyaline Casts Urine Mucus Urine Opiates Screen Acetaminophen Less than 2.0 L Ur Barbiturates Screen Ur Amphetamines Screen U Benzodiazepines Scrn Urine Cocaine Screen U Cannabinoids Screen Serum Alcohol 290 H 04/05/18 04/05/18 03:20 03:20 WBC RBC Hgb Hct MCV MCH MCHC RDW Plt Count MPV Neut % (Auto) Lymph % (Auto) [place] % (Auto) Eos % (Auto) Baso % (Auto) Neut # (Auto) Lymph # (Auto) [place] # (Auto) Eos # (Auto) Baso # (Auto) WBC Differential Differential Comment Sodium Potassium Chloride Carbon Dioxide Anion Gap BUN Creatinine Estimated GFR Random Glucose Calcium Phosphorus Magnesium Total Bilirubin AST ALT Alkaline Phosphatase Total Protein Albumin Urine Color Yellow Urine Clarity Clear Urine pH 5.0 Ur Specific [place] 1.009 Urine Protein Negative Urine Glucose (UA) Negative Urine Ketones Negative Urine Occult Blood Small H Urine Nitrate Negative Urine Bilirubin Negative Urine Urobilinogen Less than 2 Ur Leukocyte Esterase Negative Urine RBC 1 Urine WBC 1 Ur Squamous Epith Cells 1 Urine Bacteria Rare H Hyaline Casts 1 Urine Mucus Few H Urine Opiates Screen Neg Acetaminophen Ur Barbiturates Screen Neg Ur Amphetamines Screen Pos H U Benzodiazepines Scrn Neg Urine Cocaine Screen Neg U Cannabinoids Screen Neg Serum Alcohol - Imaging Impressions Chest X-Ray 04/05/18 02:52 CONCLUSION: The lungs are clear. Head CT 04/05/18 02:52 CONCLUSION: 1. Negative noncontrast CT brain. Caprini VTE Risk Assessment Caprini VTE Risk Assessment: No/Low Risk (score <= 1) Caprini Risk Assessment Model: Point Value = 1 Point Value = 2 Point Value = 3 Point Value = 5 Age 41-60 Minor surgery BMI > 25 kg/m2 Swollen legs Varicose veins or History of unexplained or recurrent spontaneous Oral contraceptives or hormone replacement Sepsis (< 1 month) Serious lung disease, including pneumonia (< 1 month) Abnormal pulmonary function Acute myocardial infarction Congestive heart failure (< 1 month) History of inflammatory bowel disease Medical patient at bed rest Age 61-74 Arthroscopic surgery Major open surgery (> 45 min) Laparoscopic surgery (> 45 min) Malignancy Confined to bed (> 72 hours) Immobilizing plaster cast Central venous access Age >= 75 History of VTE Family history of VTE Factor V Leiden Prothrombin [id number] Lupus anticoagulant Anticardiolipin antibodies Elevated serum homocysteine Heparin-induced thrombocytopenia Other congenital or acquired thrombophilia Stroke (< 1 month) Elective arthroplasty Hip, pelvis, or leg fracture Acute spinal cord injury (< 1 month) Prophylaxis Regimen: Total Risk Factor Score Risk Level Prophylaxis Regimen 0-1 Low Early ambulation 2 Moderate Order ONE of the following: *Sequential Compression Device (SCD) *Heparin 5000 units SQ BID 3-4 Higher Order ONE of the following medications: *Heparin 5000 units SQ TID *Enoxaparin/Lovenox 40 mg SQ daily (WT < 150 kg, CrCl > 30 mL/min) *Enoxaparin/Lovenox 30 mg SQ daily (WT < 150 kg, CrCl > 10-29 mL/min) *Enoxaparin/Lovenox 30 mg SQ BID (WT < 150 kg, CrCl > 30 mL/min) AND/OR *Sequential Compression Device (SCD) 5 or more Highest Order ONE of the following medications: *Heparin 5000 units SQ TID (Preferred with Epidurals) *Enoxaparin/Lovenox 40 mg SQ daily (WT < 150 kg, CrCl > 30 mL/min) *Enoxaparin/Lovenox 30 mg SQ daily (WT < 150 kg, CrCl > 10-29 mL/min) *Enoxaparin/Lovenox 30 mg SQ BID (WT < 150 kg, CrCl > 30 mL/min) AND *Sequential Compression Device (SCD) Assessment and Plan - Assessment (1) Altered mental status Code(s): R41.82 - Altered mental status, unspecified Status: Acute (2) Tachycardia Code(s): R00.0 - Tachycardia, unspecified Status: Acute (3) Amphetamine abuse Code(s): F15.10 - Other stimulant abuse, uncomplicated Status: Acute - Plan Patient is a female brought in noted to have tachycardia and altered mental status. Urine drug screen is positive for amphetamines Was positive for alcohol CIWA Multivitamin, thiamine, folic acid, Fluids, Elevated LFTs suspect secondary to alcohol abuse Tachycardia secondary to amphetamines and alcohol and dehydration recommend stopped Amphetamine and alcohol use Try to obtain home medications Discussed with RN and patient Case management for help with discharge Hopefully can discharge in the next 24-48 hours
[2018-04-05 12:34] LABS: Baso # (Auto) 0.1 th/mm3 (0.0-0.2); Baso % (Auto) 0.7 % (0.0-2.0); Eos % (Auto) 0.1 % (0.0-4.0); Hematocrit 41.3 % (35.0-46.0); Hemoglobin 13.8 gm/dL (11.6-15.3); Lymph # (Auto) 2.6 th/mm3 (1.0-4.8); Lymph % (Auto) 23.4 % (9.0-44.0); Mean Corpuscular HGB Conc 33.3 % (32.0-36.0); Mean Corpuscular Hemoglobin 30.1 pg (27.0-34.0); Mean Corpuscular Volume 90.4 fL (80.0-100.0); Mean Platelet Volume 7.9 fL (7.0-11.0); Mono # (Auto) 0.8 th/mm3 (0.0-0.9); Mono % (Auto) 7.5 % (0.0-8.0); Neut # (Auto) 7.7 th/mm3 (1.8-7.7); Neut % (Auto) 68.3 % (16.0-70.0); Platelet Count 325 th/mm3 (150-450); Red Blood Count 4.57 mil/mm3 (4.00-5.30); Red Cell Distribution Width 14.9 % (11.6-17.2); White Blood Count 11.2 th/mm3 (4.0-11.0)
[2018-04-05 12:43] LABS: INR 1.1 Ratio; Prothrombin Time 11.3 sec (9.8-11.6)
[2018-04-05] MEDS ORDERED: Potassium Chloride 25 MEQ Effervescent Tablet PO ONE (17:56)
--- NOTE | 2018-04-05 17:59 | ECG ---
Date Performed: 04/05/2018 Time Performed: 02:55:38 PTAGE: 89 years EKG: SINUS TACHYCARDIA ABNORMAL RHYTHM ECG NO PREVIOUS TRACING DOCTOR: Paris Briggs Interpretating Date/Time 04/05/2018 18:04:47
--- NOTE | 2018-04-05 19:03 | ECG ---
Date Performed: 04/05/2018 Time Performed: 03:39:33 PTAGE: 89 years EKG: SUPRAVENTRICULAR TACHYCARDIA BORDERLINE RIGHT AXIS DEVIATION NONSPECIFIC ST & T-WAVE ABNORM ALITY ABNORMAL RHYTHM ECG INTERPRETATION BASED ON A DEFAULT AGE OF 42 YEARS PREVIOUS TRACING :04/05/2015 @2.55 Since the prior tracing,the superventricular tachycardia is new. There has been an increase in the minimal J-point depression. DOCTOR: Paris Briggs Interpretating Date/Time 04/05/2018 19:01:39
[2018-04-06 07:47] LABS: Baso # (Auto) 0.1 th/mm3 (0.0-0.2); Baso % (Auto) 1.1 % (0.0-2.0); Eos # (Auto) 0.1 th/mm3 (0.0-0.4); Eos % (Auto) 1.9 % (0.0-4.0); Hematocrit 40.1 % (35.0-46.0); Hemoglobin 13.5 gm/dL (11.6-15.3); Lymph # (Auto) 3.1 th/mm3 (1.0-4.8); Mean Corpuscular HGB Conc 33.5 % (32.0-36.0); Mean Corpuscular Hemoglobin 30.5 pg (27.0-34.0); Mean Platelet Volume 7.8 fL (7.0-11.0); Mono # (Auto) 0.6 th/mm3 (0.0-0.9); Mono % (Auto) 7.5 % (0.0-8.0); Neut # (Auto) 3.6 th/mm3 (1.8-7.7); Neut % (Auto) 48.5 % (16.0-70.0); Platelet Count 286 th/mm3 (150-450); Red Blood Count 4.41 mil/mm3 (4.00-5.30); Red Cell Distribution Width 13.9 % (11.6-17.2); White Blood Count 7.4 th/mm3 (4.0-11.0)
[2018-04-06 07:56] LABS: INR 1.1 Ratio; Prothrombin Time 10.7 sec (9.8-11.6)
[2018-04-06 08:16] LABS: Albumin 3.4 g/dL (3.4-5.0); Anion Gap 9 meq/L (5-15); Aspartate Aminotransferase 22 U/L (15-37); Blood Urea Nitrogen 6 mg/dL (7-18); Calcium 8.1 mg/dL (8.5-10.1); Carbon Dioxide 22.3 meq/L (21.0-32.0); Chloride 108 meq/L (98-107); Glomerular Filtration Rate Greater Than 89 mL/min (>89); Glucose,Random 80 mg/dL (74-106); Magnesium 1.8 mg/dL (1.5-2.5); Potassium 3.3 meq/L (3.5-5.1); Sodium 139 meq/L (136-145)
[2018-04-06 08:25] LABS: Alanine Aminotransferase 51 U/L (10-53); Alkaline Phosphatase 77 U/L (45-117); Free T4 (Free Thyroxine) 0.98 ng/dL (0.76-1.46); Phosphorus 2.3 mg/dL (2.5-4.9); Total Protein 7.3 g/dL (6.4-8.2)
[2018-04-06] MEDS ORDERED: Magnesium Sulfate Inj 2 GM in Sodium Chlor 0.9% Inj 96 ML IV.SIG ONE (08:25)
[2018-04-06] MEDS: Sod Chloride 0.9% Inj 1,000 ML IV.CONT SCH (09:09)
[2018-04-06] MEDS: Multivitamin/Minerals Therapeutic Tablet PO SCH (09:19)
[2018-04-06] MEDS: Folic Acid 1 MG Tablet PO SCH (09:19)
[2018-04-06] MEDS: Mag Sulf 1 gm/100 ml Premix 100 ML IV.SIG SCH ×2 (09:20→12:48)
[2018-04-06] MEDS ORDERED: Potassium Chloride 25 MEQ Effervescent Tablet PO ONE (09:30)
[2018-04-06] MEDS: Enoxaparin Inj 40 MG/0.4 ML Syringe SQ SCH (12:29)
[2018-04-06 12:59] LABS: Hemoglobin A1c 4.7 % (4.3-6.0)
--- NOTE | 2018-04-06 13:57 | P.PN ---
Subjective Interval history: Follow-up visit EtOH intoxication, amphetamines, acute kidney injury, hypokalemia. Patient seen and examined today. Patient states she is doing okay. Very tearful. States she has never done drugs before nor she even drinks alcohol regularly. States that she was in a alliance party yesterday as asked by friends because she is going to a very stressful moment were and his son is going to have him start his treatment for leukemia. 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 States that she wanted to a alliance party and had 3 beers and has met a teo who gave him a drink and after the drink she does not know what happened to her. She has no recollection. Patient states that the only mistake she made is that "I went with someone drink and did not know him." She denies SI, HI. Complains of mild headache. Denies pain and discomfort. Denies SOB/ dyspnea. Denies chest pain, palpitations, dizziness. Denies fevers, chills, n/v/d. Denies dysuria. Physical Exam Vital signs: Vital Signs 04/05/18 16:00 04/05/18 17:30 04/05/18 20:00 Temperature 97.8 F 99.2 F Pulse Rate 101 H 106 H 100 H Respiratory Rate 22 18 Blood Pressure 141/86 H 132/85 Pulse Oximetry 100 100 04/05/18 23:41 04/06/18 04:00 04/06/18 04:30 Temperature 98.7 F 98.4 F Pulse Rate 75 66 64 Respiratory Rate 16 16 Blood Pressure 125/77 122/66 Pulse Oximetry 100 100 04/06/18 10:29 04/06/18 12:00 Temperature 98.2 F Pulse Rate 65 70 Respiratory Rate 22 Blood Pressure 126/68 Pulse Oximetry 98 Intake & Output 04/05/18 04/06/18 04/06/18 18:59 06:59 18:59 Intake Total 1999 / 1999 1000 / 1000 1100 / 1100 Balance 1999 / 1999 1000 / 1000 1100 / 1100 Intake: IV 1000 / 1000 1000 / 1000 1100 / 1100 NS Inj 1,000 ML @ 100 mls/hr IV 1000 / 1000 1000 / 1000 1000 / 1000 .CONT .Q10H [facility] Rx#:[id number] Magnesium Sulfate 1 gm/D5W 100 100 / 100 ml Premix 100 ML @ 100 mls/hr IV.SIG Q1H [facility] Rx#:[id number] Oral 1000 / 1000 Other: # Voids 1 1 # Incontinent Voids 1 Narrative: GENERAL: This is a well-nourished, well-developed patient, in no apparent distress. SKIN: Warm and dry HEENT: Normocephalic. Pupils equal round and reactive. Nose without bleeding. Airway patent. NECK: Trachea midline. No JVD. Supple. CARDIOVASCULAR: Regular rate and rhythm without murmurs, gallops, or rubs. RESPIRATORY: Clear to auscultation. Breath sounds equal bilaterally. No wheezes , rales, or rhonchi. GASTROINTESTINAL: Abdomen soft, non-tender, nondistended. Bowel Sounds normoactive x4. MUSCULOSKELETAL: Extremities without clubbing, cyanosis, or edema. NEUROLOGICAL: Awake and alert. Oriented to time, place, person. No focal neuro deficit. Moves all extremities. Normal speech. Results - Labs CBC & Chem 7: 04/06/18 07:35 04/06/18 07:35 Laboratory Results - last 24 hr 04/05/18 04/06/18 04/06/18 18:55 07:35 07:35 WBC 7.4 RBC 4.41 Hgb 13.5 Hct 40.1 MCV 91.0 MCH 30.5 MCHC 33.5 RDW 13.9 Plt Count 286 MPV 7.8 Neut % (Auto) 48.5 Lymph % (Auto) 41.0 [place] % (Auto) 7.5 Eos % (Auto) 1.9 Baso % (Auto) 1.1 Neut # (Auto) 3.6 Lymph # (Auto) 3.1 [place] # (Auto) 0.6 Eos # (Auto) 0.1 Baso # (Auto) 0.1 WBC Differential . Differential Comment Auto diff final PT INR Sodium 139 Potassium 3.3 L Chloride 108 H Carbon Dioxide 22.3 Anion Gap 9 BUN 6 L Creatinine 0.65 Estimated GFR Greater than 89 POC Glucose 76 Random Glucose 80 Hemoglobin A1c Calcium 8.1 L Phosphorus 2.3 L Magnesium 1.8 Total Bilirubin 0.7 AST 22 ALT 51 Alkaline Phosphatase 77 Ammonia Total Protein 7.3 D Albumin 3.4 D TSH 2.680 Free T4 0.98 04/06/18 04/06/18 04/06/18 07:35 07:35 07:35 WBC RBC Hgb Hct MCV MCH MCHC RDW Plt Count MPV Neut % (Auto) Lymph % (Auto) [place] % (Auto) Eos % (Auto) Baso % (Auto) Neut # (Auto) Lymph # (Auto) [place] # (Auto) Eos # (Auto) Baso # (Auto) WBC Differential Differential Comment PT 10.7 INR 1.1 Sodium Potassium Chloride Carbon Dioxide Anion Gap BUN Creatinine Estimated GFR POC Glucose Random Glucose Hemoglobin A1c 4.7 Calcium Phosphorus Magnesium Total Bilirubin AST ALT Alkaline Phosphatase Ammonia 15 Total Protein Albumin TSH Free T4 04/06/18 09:15 WBC RBC Hgb Hct MCV MCH MCHC RDW Plt Count MPV Neut % (Auto) Lymph % (Auto) [place] % (Auto) Eos % (Auto) Baso % (Auto) Neut # (Auto) Lymph # (Auto) [place] # (Auto) Eos # (Auto) Baso # (Auto) WBC Differential Differential Comment PT INR Sodium Potassium Chloride Carbon Dioxide Anion Gap BUN Creatinine Estimated GFR POC Glucose 78 Random Glucose Hemoglobin A1c Calcium Phosphorus Magnesium Total Bilirubin AST ALT Alkaline Phosphatase Ammonia Total Protein Albumin TSH Free T4 Assessment and Plan - Assessment (1) Altered mental status Code(s): R41.82 - Altered mental status, unspecified Status: Acute (2) Tachycardia Code(s): R00.0 - Tachycardia, unspecified Status: Acute (3) Amphetamine abuse Code(s): F15.10 - Other stimulant abuse, uncomplicated Status: Acute - Plan Patient is a 27-year-old female who came into the hospital for altered mental status. Polysubstance intoxication Positive for EtOH, amphetamines on [place] -CIWA Protocol, IV fluid -Discussed extensively with patient dangers polysubstance intoxication. Patient is very fearful states she will do it again or come at the same mistake again. States that she has never had any run in with drugs. States that she would never do that to herself hurt herself nor anyone else. Counseled. Verbalized understanding. -Patient states she is in a lot of stress right now. Discuss referral to psychologist or counselor to help her through this difficult time with her child. Hypokalemia Hypomagnesemia -Replacement provided -Pending repeat labs. DVT prop ambulatory Plan to discharge home when labs come back within normal Discharge patient to home Condition on discharge: Improved Regular Diet as tolerated Ad Jessica activity Rx written: On discharge summary Follow-up with primary care physician, psychologist/counselor Code Status: Full code Discussed Condition With: Patient, nursing Discharge Planning: Plan to discharge home today when labs are within normal
[2018-04-06 16:42] LABS: Anion Gap 9 meq/L (5-15); Blood Urea Nitrogen 5 mg/dL (7-18); Calcium 8.5 mg/dL (8.5-10.1); Carbon Dioxide 22.2 meq/L (21.0-32.0); Chloride 109 meq/L (98-107); Glomerular Filtration Rate Greater Than 89 mL/min (>89); Glucose,Random 89 mg/dL (74-106); Potassium 4.2 meq/L (3.5-5.1); Sodium 140 meq/L (136-145)
== END 2018-04-06 17:29 | disposition home or self-care (01) ==
LOC: NEPGCP 02:47 → NEPE 02:47 → NEDA 02:47 → EDBD 06:00 → NEDA 12:09 → NEPGCP 12:44
PROVIDERS: ADMIT Family Medicine; ATTEND Family Medicine